=== PATIENT | male | born 1935 | race Caucasian/White ===

== ENCOUNTER 2018-04-02 08:19 | Day surgery (SDC) | payer MEDICARE, BC ==
[2018-04-02] MEDS ORDERED: ACETAZOLAMIDE 250 MG PO ONE (08:29)
[2018-04-02] MEDS: PHENYLEPHRINE HCL 10% OPHTHAL SOL ONE ×2 (08:44→08:57)
[2018-04-02] MEDS: PROPARACAINE HCL 0.5% OPHTHALMIC SOL ONE ×3 (08:44→09:39)
[2018-04-02] MEDS: CYCLOPENTOLATE 1% SOL ONE ×2 (08:44→08:57)
[2018-04-02] MEDS: KETOROLAC 0.5% OPTH 60 DROP SOL ONE ×2 (08:45→08:58)
[2018-04-02] MEDS ORDERED: FENTANYL 100MCG/2ML SOL ONE (09:18)
[2018-04-02] MEDS ORDERED: MIDAZOLAM 2 MG/2 ML SOL ONE (09:18)
[2018-04-02] MEDS ORDERED: BSS 500 ML 500 ML IR ONE (09:32)
[2018-04-02] MEDS ORDERED: LIDOCAINE HCL 1% MPF 30 SOL ONE (09:32)
[2018-04-02] MEDS ORDERED: POVIDONE IODINE 5% SOL ONE (09:32)
[2018-04-02] MEDS ORDERED: IMPRIMIS ONE (09:32)
[2018-04-02] MEDS ORDERED: OFLOXACIN 0.3% OPHTHAL 1 DROP SOL RIGHTEYE ONE (09:53)
[2018-04-02 10:14] VITALS: BP 134/84; PULSE 83; RESP 20; TEMP 97.5; O2SAT 93
== END 2018-04-02 10:30 | disposition home or self-care (01) | DRG 125 ==
LOC: SURG 08:19
PROVIDERS: ATTEND Ophthalmology
DX: H25.89 Other age-related cataract (principal); H54.7 Unspecified visual loss
CPT/HCPCS: J2250; J3010; A9270-GY; J2001

== ENCOUNTER 2018-05-07 10:51 | Day surgery (SDC) | payer MEDICARE, BC ==
[~2018-05-07 10:51] MED LIST: ACETAZOLAMIDE 250 MG PO ONE
[2018-05-07] MEDS: KETOROLAC 0.5% OPTH 60 DROP SOL ONE ×2 (11:11→11:23)
[2018-05-07] MEDS: CYCLOPENTOLATE 1% SOL ONE ×2 (11:11→11:23)
[2018-05-07] MEDS: PHENYLEPHRINE HCL 10% OPHTHAL SOL ONE ×2 (11:11→11:23)
[2018-05-07] MEDS ORDERED: FENTANYL 100MCG/2ML SOL ONE (11:15)
[2018-05-07] MEDS ORDERED: MIDAZOLAM 2 MG/2 ML SOL ONE (11:31)
[2018-05-07] MEDS ORDERED: BSS 500 ML 500 ML IR ONE (11:58)
[2018-05-07] MEDS ORDERED: LIDOCAINE HCL 1% MPF 30 SOL ONE (11:58)
[2018-05-07] MEDS ORDERED: POVIDONE IODINE 5% SOL ONE (11:58)
[2018-05-07] MEDS: IMPRIMIS ONE ×2 (12:16→12:19)
[2018-05-07 12:39] VITALS: RESP 20; TEMP 97.7; O2SAT 94
[2018-05-07 12:43] VITALS: BP 144/94; PULSE 77
== END 2018-05-07 12:55 | disposition home or self-care (01) | DRG 125 ==
LOC: SURG 10:51
PROVIDERS: ATTEND Ophthalmology
DX: H25.89 Other age-related cataract (principal)
CPT/HCPCS: J2250; J3010; A9270-GY; J2001